=== PATIENT | female | born 1955 | race Caucasian/White ===

== ENCOUNTER 2020-07-28 19:06 | Emergency (ER) | payer OTHER ==
[~2020-07-28] VITALS: Ht 162.6 cm; Wt 84.4 kg
[~2020-07-28 19:06] MED LIST: CLOR7.5T3 PO; HYDR-500 PO; LEVE500T9 PO; TRAZ-257 PO
--- NOTE | 2020-07-28 19:10 | NUR ---
PT BIBRA C/O CRAMPING IN [facility] 1MONTH AND BROWN VAGINAL DISCHARGEXTODAY. PT AAOX4 BREATHING EVENLY AND UNLABORED. PT SKIN WARM, DRY, AND INTACT. PT STATES THAT SHE HAS NOT PELVIC PAIN, BUT THE ABD PAIN IS 5/10. LEFT HAND 20G INITIATED, BLOOD DRAWN AND SENT TO LAB. PT ATTACHED TO MONITOR AND POX. PT GIVEN BLANKET AND CALL LIGHT WITHIN REACH
[2020-07-28] MEDS ORDERED: KETOROLAC TROMETHAMINE INJ 30 MG/ML VIAL IV ONE (19:30)
[2020-07-28] MEDS ORDERED: KETOROLAC TROMETHAMINE INJ 30 MG/ML VIAL ONE (19:35)
[2020-07-28 19:47] LABS: BASOPHILS # (AUTO) 0.2 /CMM (0.0-0.2); BASOPHILS % (AUTO) 1.2 % (0.0-2.0); EOSINOPHILS % (AUTO) 1.6 % (0.0-6.0); HEMATOCRIT 45 % (33-45); HEMOGLOBIN 15.3 g/dL (11.5-14.8); LYMPHOCYTES # (AUTO) 3.4 /CMM (0.8-4.8); LYMPHOCYTES % (AUTO) 26.1 % (20.0-44.0); MEAN CORPUSCULAR HGB CONC 34 g/dl (31.0-36.0); MEAN CORPUSCULAR VOLUME 91 fL (82-100); MONOCYTES # (AUTO) 1.2 /CMM (0.1-1.30); MONOCYTES % (AUTO) 9.6 % (2.0-12.0); NEUTROPHILS # (AUTO) 7.9 /CMM (1.8-8.9); NEUTROPHILS % (AUTO) 61.5 % (43.0-81.0); PLATELET COUNT (AUTO) 302 /CMM (150-450); RED BLOOD CELL COUNT(AUTO) 4.96 MIL/uL (4.0-5.2); WHITE BLOOD COUNT (AUTO) 12.9 K/uL (4.3-11.0)
--- NOTE | 2020-07-28 19:50 | NUR ---
US AT BEDSIDE
[2020-07-28 20:10] LABS: ALBUMIN 3.8 g/dL (3.4-5.0); BILIRUBIN,DIRECT 0.1 mg/dL (0.0-0.2); BILIRUBIN,TOTAL 0.3 mg/dL (0.2-1.0); CALCIUM, SERUM 9.3 mg/dL (8.5-10.1); CREATININE 1.3 mg/dL (0.6-1.3); TOTAL PROTEIN, SERUM 7.6 g/dL (6.4-8.2)
[2020-07-28 20:14] LABS: POTASSIUM 2.8 mmol/L (3.5-5.1)
[2020-07-28] MEDS ORDERED: POTASSIUM CHLORIDE 20 MEQ TAB.PRT.SR PO ONE ×2 (20:30→20:39)
--- NOTE | 2020-07-28 20:43 | NUR ---
URINE SENT TO LAB
[2020-07-28 20:51] LABS: BILIRUBIN,URINE Negative (NEGATIVE); COLOR,URINE YELLOW (YELLOW); LEUKOCYTE ESTERASE ,URINE Moderate (NEGATIVE); NITRITE, URINE Negative (NEGATIVE); PH,URINE 5.5 (5.0-8.0); PROTEIN,URINE Negative (NEGATIVE); UGLUCOSE Negative (NEGATIVE); UROBILINOGEN,URINE 0.2 EU/dL (0.2)
[2020-07-28 20:53] LABS: BACTERIA,URINE 2+ /HPF (None Seen); RBC,URINE 21-50 /HPF (0-2); SQUAMOUS EPITHELIAL CELL,UR Few /HPF (None Seen)
[2020-07-28] MEDS ORDERED: CEPH500C2 PO (21:00)
[2020-07-28] MEDS ORDERED: CEPHALEXIN MONOHYDRATE 500 MG CAPSULE PO ONE ×2 (21:00→21:09)
--- NOTE | 2020-07-28 21:17 | NUR ---
called [facility]. eta 30min
--- NOTE | 2020-07-28 21:49 | NUR ---
called [facility] and spoke to caregiver, vineet to inform her that pt will be returning
--- NOTE | 2020-07-28 21:56 | NUR ---
gave report to ems with d/c paper work
[2020-07-28 21:57] VITALS: BP 125/70
== END 2020-07-28 21:50 | disposition home or self-care (01) ==
LOC: ER 19:09
DX: N39.0 Urinary tract infection, site not specified (principal); N95.0 Postmenopausal bleeding; R19.7 Diarrhea, unspecified; I10 Essential (primary) hypertension; F41.9 Anxiety disorder, unspecified; F32.9 Major depressive disorder, single episode, unspecified; Z90.49 Acquired absence of other specified parts of digestive tract; Z90.89 Acquired absence of other organs; Z79.899 Other long term (current) drug therapy
CPT/HCPCS: 36415; 76856; 80048; 80076; 81001; 85025; 87086; 96374; 99285; J1885; J7030

== ENCOUNTER 2021-01-24 10:00 | Emergency (ER) | payer MEDICARE, OTHER ==
[~2021-01-24] VITALS: Ht 162.6 cm; Wt 63.5 kg
[~2021-01-24 10:00] MED LIST changes: +CEPH500C2 PO
--- NOTE | 2021-01-24 10:06 | NUR ---
TO ER BED 6, C/O CHEST CONGESTION DUE TO COUGH X1WK, TOOK INHALER THIS MORNING BUT DIDNT WORK, SATTING AT 99% ROOM AIR, AAOX4, BREATHING EVEN AND NON LABORED, ATTACHED TO MONITOR.
[2021-01-24] MEDS ORDERED: ALBUTEROL FS 2.5 MG/3 ML VIAL.NEB ONE (10:28)
[2021-01-24] MEDS ORDERED: IPRATROPIUM NEB FS 0.5 MG/2.5 ML AMPUL.NEB ONE (10:28)
[2021-01-24] MEDS ORDERED: predniSONE 20 MG TABLET ONE (10:29)
[2021-01-24] MEDS ORDERED: ALBUTEROL FS 2.5 MG/3 ML VIAL.NEB NEB ONE (10:30)
[2021-01-24] MEDS ORDERED: IPRATROPIUM NEB FS 0.5 MG/2.5 ML AMPUL.NEB NEB ONE (10:30)
[2021-01-24] MEDS ORDERED: predniSONE 20 MG TABLET PO ONE (10:30)
--- NOTE | 2021-01-24 10:57 | NUR ---
COVID SWAB DONE AND SENT TO LAB
--- NOTE | 2021-01-24 10:57 | NUR ---
LAB AT BEDSIDE
[2021-01-24 11:18] LABS: BASOPHILS # (AUTO) 0.1 K/uL (0.0-0.2); EOSINOPHILS % (AUTO) 5.6 % (0.0-6.0); HEMATOCRIT 44 % (33-45); HEMOGLOBIN 14.9 g/dL (11.5-14.8); LYMPHOCYTES # (AUTO) 3.5 K/uL (0.8-4.8); LYMPHOCYTES % (AUTO) 39.7 % (20.0-44.0); MEAN CORPUSCULAR HGB CONC 34 g/dl (31.0-36.0); MEAN CORPUSCULAR VOLUME 93 fL (82-100); MONOCYTES # (AUTO) 1.6 K/uL (0.1-1.30); MONOCYTES % (AUTO) 17.6 % (2.0-12.0); NEUTROPHILS # (AUTO) 3.2 K/uL (1.8-8.9); NEUTROPHILS % (AUTO) 36.1 % (43.0-81.0); PLATELET COUNT (AUTO) 258 K/uL (150-450); RED BLOOD CELL COUNT(AUTO) 4.68 MIL/uL (4.0-5.2); WHITE BLOOD COUNT (AUTO) 8.9 K/uL (4.3-11.0)
--- NOTE | 2021-01-24 11:18 | NUR ---
GUNNER MATE AT BEDSIDE
[2021-01-24 11:30] LABS: CALCIUM, SERUM 8.7 mg/dL (8.5-10.1); CARBON DIOXIDE 24 mmol/L (21-32); CHLORIDE 105 mmol/L (98-107); CREATININE 0.8 mg/dL (0.6-1.3); GLUCOSE 112 mg/dL (74-106); POTASSIUM 3.1 mmol/L (3.5-5.1); SODIUM SERUM 139 mmol/L (136-145); UREA NITROGEN, BLOOD 14 mg/dL (7-18)
[2021-01-24] MEDS ORDERED: PRED20TA PO (12:11)
[2021-01-24] MEDS ORDERED: AZIT1PAC9 PO (12:11)
--- NOTE | 2021-01-24 12:15 | NUR ---
[facility] WILL BE HERE AT 1331
[2021-01-24 14:06] VITALS: BP 133/70
== END 2021-01-24 14:07 | disposition home or self-care (01) ==
LOC: ER 10:11
DX: J18.9 Pneumonia, unspecified organism (principal); J45.909 Unspecified asthma, uncomplicated; Z20.822 Contact with and (suspected) exposure to COVID-19; I10 Essential (primary) hypertension; G40.909 Epilepsy, unspecified, not intractable, without status epilepticus; F32.9 Major depressive disorder, single episode, unspecified; Z90.49 Acquired absence of other specified parts of digestive tract; Z79.899 Other long term (current) drug therapy
CPT/HCPCS: 36415; 71045; 80048; 84484; 85025; 87426; 93005; 94640; 99285; J7512; C9803

== ENCOUNTER 2024-05-10 15:11 | Emergency (ER) | payer MEDICARE, MEDICAID ==
[~2024-05-10] VITALS: Ht 165.1 cm; Wt 79.4 kg
[~2024-05-10 15:11] MED LIST changes: +AZIT1PAC9 PO; +PRED20TA PO
[2024-05-10] MEDS ORDERED: CEPH-570 PO (16:16)
[2024-05-10 18:01] VITALS: BP 116/66; TEMP 97.7; O2SAT 98
== END 2024-05-10 18:01 | disposition home or self-care (01) ==
LOC: ER 15:15
DX: M25.561 Pain in right knee (principal); I10 Essential (primary) hypertension; F41.9 Anxiety disorder, unspecified; F32.A Depression, unspecified; Z48.02 Encounter for removal of sutures; G40.909 Epilepsy, unspecified, not intractable, without status epilepticus; Z79.52 Long term (current) use of systemic steroids; Z79.899 Other long term (current) drug therapy; Z90.49 Acquired absence of other specified parts of digestive tract; Z90.89 Acquired absence of other organs
CPT/HCPCS: 73564-TC

== ENCOUNTER 2024-10-09 11:10 | Emergency (ER) | payer MEDICARE, OTHER ==
[~2024-10-09] VITALS: Ht 165.1 cm; Wt 79.8 kg
[~2024-10-09 11:10] MED LIST changes: +CEPH-570 PO
[2024-10-09] MEDS: ACETAMINOPHEN ES 500 MG TABLET PO ONE (11:27)
[2024-10-09 12:58] VITALS: BP 135/73; TEMP 98; O2SAT 97
== END 2024-10-09 12:58 ==
LOC: ER 11:16
DX: S09.8XXA Other specified injuries of head, initial encounter (principal); M25.562 Pain in left knee; M54.2 Cervicalgia; F32.A Depression, unspecified; I10 Essential (primary) hypertension; F41.9 Anxiety disorder, unspecified; Z79.52 Long term (current) use of systemic steroids; Z79.899 Other long term (current) drug therapy; Z90.49 Acquired absence of other specified parts of digestive tract; Z90.89 Acquired absence of other organs; W06.XXXA Fall from bed, initial encounter; Y93.89 Activity, other specified; Y92.89 Other specified places as the place of occurrence of the external cause; Y99.8 Other external cause status
CPT/HCPCS: 70450-TC; 72125-TC; 73030-TC; 73502; 73564-TC

== ENCOUNTER 2024-12-05 08:57 | Emergency (ER) | payer MEDICARE, OTHER ==
[~2024-12-05] VITALS: Ht 167.6 cm; Wt 77.1 kg
[2024-12-05] MEDS ORDERED: KETOROLAC TROMETHAMINE 15 MG/ML VIAL ONE (10:04)
[2024-12-05] MEDS ORDERED: LIDOCAINE 5% (PATCH) 1 EA PATCH TP ONE (10:04)
[2024-12-05] MEDS ORDERED: ACETAMINOPHEN 325 MG TABLET ONE (10:04)
[2024-12-05] MEDS: KETOROLAC TROMETHAMINE 15 MG/ML VIAL IM ONE (10:09)
[2024-12-05] MEDS: ACETAMINOPHEN 325 MG TABLET PO ONE (10:10)
[2024-12-05] MEDS: LIDOCAINE 5% (PATCH) 1 EA PATCH TP SCH (10:10)
[2024-12-05] MEDS ORDERED: IBUP-1955 PO (10:23)
[2024-12-05] MEDS ORDERED: LIDO30AD10 TP (10:23)
[2024-12-05 12:09] VITALS: BP 128/77; TEMP 98; O2SAT 98
== END 2024-12-05 12:09 ==
LOC: ER 09:08
DX: S83.8X2A Sprain of other specified parts of left knee, initial encounter (principal); S43.491A Other sprain of right shoulder joint, initial encounter; R07.89 Other chest pain; M25.551 Pain in right hip; M25.552 Pain in left hip; F41.9 Anxiety disorder, unspecified; F32.A Depression, unspecified; G40.909 Epilepsy, unspecified, not intractable, without status epilepticus; I10 Essential (primary) hypertension; Z79.52 Long term (current) use of systemic steroids; Z79.899 Other long term (current) drug therapy; Z90.49 Acquired absence of other specified parts of digestive tract; W01.0XXA Fall on same level from slipping, tripping and stumbling without subsequent striking against object, initial encounter; Y93.89 Activity, other specified; Y92.89 Other specified places as the place of occurrence of the external cause; Y99.8 Other external cause status
CPT/HCPCS: 99284; 96372; 72170; 71111; 73564; 73030; J1885